=== PATIENT | female | born 2000 | race Caucasian/White ===

== ENCOUNTER 2024-05-27 12:20 | Outpatient (CLI) | payer OTHER, SELFPAY | END 2024-05-27 12:21 | disposition home or self-care (01) | LOC: NFLDREF 05-30 14:48 | PROVIDERS: Visit Provider Nurse Practitioner Family | DX: N30.90 Cystitis, unspecified without hematuria (principal) | CPT/HCPCS: 87086 ==

== ENCOUNTER 2024-06-05 09:43 | Outpatient (CLI) | payer OTHER, SELFPAY | END 2024-06-05 09:44 | disposition home or self-care (01) | PROVIDERS: Visit Provider Physician Assistant | DX: N92.0 Excessive and frequent menstruation with regular cycle (principal); N94.6 Dysmenorrhea, unspecified; Z12.4 Encounter for screening for malignant neoplasm of cervix | CPT/HCPCS: 82728; 84443 ==

== ENCOUNTER 2024-06-10 13:46 | Outpatient (CLI) | payer OTHER, SELFPAY ==
--- NOTE | 2024-06-10 14:00 | CRLHL7_ITS ---
For Patients: As a result of the Century Cures Act, medical imaging exams and procedure reports are released immediately into your electronic medical record. You may view this report before your referring provider. If you have questions, please contact your health care provider. CLINICAL HISTORY: Dysmenorrhea, irregular bleeding between cycles TECHNIQUE: 2D ballesteros scale ultrasound. In addition color Doppler and spectral Doppler analysis was performed of the pelvis using a transabdominal and transvaginal approach. FINDINGS: On transvaginal imaging, the myometrium has a normal uniform echotexture. Uterus measures 6.9 x 3.3 x 4.1 cm. The endometrial lining appears normal and measures 3.4 mm in thickness. The right ovary measures 2.8 x 1.1 x 1.9 cm in size and the left ovary measures 3.3 x 1.0 x 1.4 cm. The ovaries demonstrate normal arterial and venous blood flow on color Doppler and spectral Doppler analysis. There are no suspicious fluid collections within the cul-de-sac. IMPRESSION: Normal pelvic ultrasound. Dictated by Willem Bryan MD @ 06/12/2024 6:16:28 AM (Electronically Signed)
== END 2024-06-10 13:47 | disposition home or self-care (01) ==
LOC: US 13:47
PROVIDERS: Visit Provider Physician Assistant
DX: N94.6 Dysmenorrhea, unspecified (principal); N92.0 Excessive and frequent menstruation with regular cycle
CPT/HCPCS: 76830; 76856; 93976

== ENCOUNTER 2024-06-19 10:06 | Outpatient (CLI) | payer OTHER, SELFPAY | END 2024-06-19 10:07 | disposition home or self-care (01) | PROVIDERS: Visit Provider Registered Nurse | DX: N30.90 Cystitis, unspecified without hematuria (principal); B96.20 Unspecified Escherichia coli [E. coli] as the cause of diseases classified elsewhere | CPT/HCPCS: 87086; 87186 ==

== ENCOUNTER 2025-06-22 10:21 | Outpatient (CLI) | payer BC, SELFPAY | END 2025-06-22 10:22 | disposition home or self-care (01) | LOC: NFLDREF 06-25 19:09 | PROVIDERS: Visit Provider Registered Nurse | DX: Z13.6 Encounter for screening for cardiovascular disorders (principal); Z13.1 Encounter for screening for diabetes mellitus | CPT/HCPCS: 80061; 82947 ==